=== PATIENT | male | born 1970 | race Caucasian/White ===

== ENCOUNTER 2016-11-20 14:51 | Emergency (ER) | payer MEDICAID, SELFPAY ==
--- NOTE | 2016-11-20 16:25 | RAD ---
RIGHT HAND THREE VIEWS: HISTORY: Hand pain. No history of trauma. FINDINGS: Some very mild arthritic changes of the interphalangeal joints. There are no signs of fracture or d islocation. IMPRESSION: Very mild arthritic changes of the hand. No acute bony process. POS: [facility]
--- NOTE | 2016-11-20 17:27 | ERRECORD ---
[facility] EMERGENCY RECORD HPI GENERAL (17:18 LLDO) CHIEF COMPLAINT: Patient presents for evaluation of pt was apparently here for pain relief but couldn't stay on a very busy day. Left without being seen. HISTORIAN: History provided by patient. HPI WRIST (18:34 LLDO) CHIEF COMPLAINT: Patient presents for evaluation of decreased range of motion, Patient presents for evaluation of decreased use, Patient presents for evaluation of injury, Patient presents for evaluation of pain, Patient presents for evaluation of tenderness, Patient presents for evaluation of weakness, Patient presents for evaluation of right hand and wrist dorso-medially from cutting wood yesterday. also chronic pinched nerve in back. waiting for disability. HISTORIAN: History provided by patient. MECHANISM OF INJURY: Mechanism of injury: Body motion. LOCATION: Symptoms are localized. QUALITY: Pain is dull in nature, described as aching. SEVERITY: Maximum severity of symptoms severe, Currently symptoms are moderate. ASSOCIATED WITH: No associated alcohol use, No associated clavicle pain, No associated coolness to touch, No associated distal injury, No associated distal neuro complaint, No associated elbow pain, No associated erythema, No associated fever, Associated with finger pain, Associated with hand pain, Associated with warmth. EXACERBATED BY: Patient's condition exacerbated by flexion of fingers, Patient's condition exacerbated by flexion of wrist, Patient's condition exacerbated by movement. RELIEVED BY: Patient's condition relieved by remaining still, Patient's condition relieved by rest. ROS CONSTITUTIONAL: no ros done. (17:20 LLDO) Negative constitutional review of systems. (18:37 LLDO) EYES: Negative eye review of systems, Historian denies eye pain, denies eye redness, denies eye discharge. (18:39 LLDO) ENT: Negative ears, nose, throat review of systems, Historian denies otalgia, denies rhinorrhea, denies sinus pain, denies sore throat. (18:39 LLDO) MUSCULOSKELETAL: Historian reports arthralgias, reports back pain, reports injury, reports joint stiffness, reports joint swelling. (18:37 LLDO) NEUROLOGIC: Negative neurologic review of systems, Historian denies confusion, denies focal weakness, denies mental status changes, denies sensory changes. (18:39 LLDO) ALLERGIC/IMMUNOLOGIC: Normal allergy/immunologic system review, Historian denies eczema, denies environmental allergies, denies food allergies. (18:39 LLDO) &a-1R&a+25V*p+0X*f3915C*c202B*c15G*c2P*p-0X&a-25V&a+1R Name: Kurt Davila : 1970 M46 MedRec: [id number] AcctNum: [id number] Prepared: SunNov 20, 2016 18:41 by Interface Page 1 of 4 pMD [facility] EMERGENCY RECORD PSYCHIATRIC: Negative psychiatric review of systems, Historian denies alcohol abuse, denies anxiety, denies depression, denies drug abuse, denies hallucinations. (18:39 LLDO) NOTES: Systems not reviewed; unable. (17:20 LLDO) All systems reviewed, negative except as described above. (18:37 LLDO) PAST MEDICAL HISTORY MEDICAL HISTORY: Flu vaccine up to date, Tetanus immunization up to date, Pneumococcal vaccine up to date, Notes: GERD, HEPATITIS C,. HTN,. (15:23 AWAT) MALE SURGICAL HISTORY: Patient has no surgical history. (15:23 AWAT) PSYCHIATRIC HISTORY: PSYCHO EFFECTIVE DISORDER. (15:23 AWAT) SOCIAL HISTORY: Patient denies alcohol use, Patient denies drug use, Patient currently uses tobacco, smokes cigarettes, daily, Patient has smoked for 10 years, Patient smokes 1 pack per day. (15:23 AWAT) FAMILY HISTORY: Family history is non-contributory to this case. (15:23 AWAT) NOTES: Nursing records reviewed, Agree with nursing records, Old chart reviewed, Medication list reviewed. (17:21 LLDO) Nursing records reviewed, Agree with nursing records, Medication list reviewed. (18:39 LLDO) KNOWN ALLERGIES NKDA No Known Drug Allergies (Unconfirmed) CURRENT MEDICATIONS Elavil: TABLET : Strength - 150 mg : ORAL Patient Dose: 1 tab(s) Oral once a day (at bedtime). (15:21 AWAT) CeleXA: TABLET : Strength - 10 mg : ORAL Patient Dose: 1 cap(s) Oral 2 times a day. (15:21 AWAT) Motrin: TABLET : Strength - 100 mg : ORAL Patient Dose: 1200 mg Oral As Needed.(ADVISED PT THIS IS WAAAY TOO MUCH). (15:22 AWAT) VITAL SIGNS (15:17 AWAT) VITAL SIGNS: BP: 164/95, Pulse: 88, Resp: 16, Temp: 98.0 (Oral), Pain: 9 (Constant), O2 sat: 94 on Room Air, Time: 11/20/2016 15:17. PHYSICAL EXAM CONSTITUTIONAL: no pe done. (17:20 LLDO) Vital Signs Reviewed, Patient afebrile, Pulse normal, Blood pressure normal, Respiratory rate normal, Patient appears, &a-1R&a+25V*p+0X*n3031P*c202B*c15G*c2P*p-0X&a-25V&a+1R Name: Kurt Davila : 1970 M46 MedRec: [id number] AcctNum: [id number] Prepared: SunNov 20, 2016 18:41 by Interface Page 2 of 4 pMD [facility] EMERGENCY RECORD uncomfortable, Patient appears, in mild pain distress, Patient alert and oriented to person, place and time, Nursing notes reviewed. (18:38 LLDO) HEAD: Head exam normal, Head exam included findings of head atraumatic, normocephalic. (18:39 LLDO) EYES: Eye exam normal, Eye exam included findings of eyelids normal to inspection, Pupils equally round and reactive to light, Extraocular muscles intact. (18:39 LLDO) ENT: ENT exam normal, Ear exam normal, Nose exam normal. (18:39 LLDO) NECK: Neck exam normal, Neck exam included findings of normal range of motion, Trachea midline, no meningeal signs, no tenderness. (18:39 LLDO) BACK: Back exam normal, Back exam included findings of normal inspection, range of motion normal. (18:39 LLDO) UPPER EXTREMITY: Right wrist exam included findings of, swelling, tenderness, active range of motion abnormal, passive range of motion abnormal, tendon function normal, radial pulse intact, ulnar pulse intact, capillary refill less than 2 seconds, distal motor intact, distal sensory intact, Right hand exam included findings of. (18:38 LLDO) LOWER EXTREMITY: Lower extremity exam normal, Lower extremity exam included findings of inspection normal, Range of motion normal. (18:39 LLDO) NEURO: Neuro exam normal, Neuro exam findings include patient oriented to person, place and time, Speech normal, Young coma scale 15. (18:39 LLDO) SKIN: Skin exam normal, Skin exam included findings of skin warm, dry, and normal in color, no rash. (18:39 LLDO) PSYCHIATRIC: Psychiatric exam normal, Psychiatric exam included findings of patient oriented to person place and time, Normal affect, Judgment normal. (18:39 LLDO) PROBLEM LIST No recorded problems DIAGNOSIS FINAL: PRIMARY: Low back pain. (17:22 LLDO) PRIMARY: Low back pain, ADDITIONAL: wrist strain, R. (18:30 LLDO) PRESCRIPTION (18:31 LLDO) Robaxin-750: TABLET : 750 mg : ORAL : Quantity: 1 Unit: tab(s) Route: ORAL Schedule: every 12 hours Dispense: 30 Unit: tab(s) May substitute. Refills: No Refills . NOTES: No Refills. Tylenol-Codeine #3: TABLET : 300 mg-30 mg : ORAL : Quantity: 1 Unit: tab(s) Route: ORAL Schedule: every 4 hours prn Dispense: 40 Unit: tab(s) &a-1R&a+25V*p+0X*x8310Q*c202B*c15G*c2P*p-0X&a-25V&a+1R Name: Kurt Davila : 1970 M46 MedRec: [id number] AcctNum: [id number] Prepared: SunNov 20, 2016 18:41 by Interface Page 3 of 4 pMD [facility] EMERGENCY RECORD May substitute. Refills: No Refills . NOTES: ^s=No Refills No Refills. DISPOSITION PATIENT: Disposition Type: Eloped, Disposition: Left Without Being Seen. (17:22 LLDO) Patient left the department. (17:27 MDEB) Disposition Type: , Disposition: . (17:35 AWAT) Disposition Type: Discharge, Disposition: *Discharge Home. (18:30 LLDO) Patient left the department. (18:40 MDEB) Alexandre: AWAT=BORA Damico, Terry LLDO=MD Tad, Demetrius MDEB=BORA Hager, Gillian &a-1R&a+25V*p+0X*d6740L*c202B*c15G*c2P*p-0X&a-25V&a+1R Name: GiovanniKurt : 1970 M46 MedRec: [id number] AcctNum: [id number] Prepared: [facility] Nov 20, 2016 18:41 by Interface Page 4 of 4 pMD MTDD
--- NOTE | 2016-11-20 17:31 | PICIS ---
[facility] EMERGENCY RECORD TRIAGE (15:20 AWAT) TRIAGE NOTES: RIGHT HAND PAIN X 2 DAYS(DENIES TRAUMA, BUT HAS BEEN CUTTING TREES), AND LOW BACK PAIN FROM HIS PINCHED NERVE. (15:20 AWAT) PATIENT: NAME: Kurt Davila, AGE: 46, GENDER: male, : [facility] 1970, TIME OF GREET: SunNov 20, 2016 14:52, PREFERRED LANGUAGE: Greek, ETHNICITY: Not or , ECODE BILLING MAP: [facility], SSN: [id number], Zip Code: [address], KG WEIGHT: [phone], PHONE: , , , PERSON ID: [id number], PCP: NONE. (15:20 AWAT) COMPLAINT: PINCHED NERVE IN BACK & HAND. (15:20 AWAT) ADMISSION: URGENCY: 4 Non Urgent, ADMISSION SOURCE: Home, TRANSPORT: Walk-in, BED: WAIT. (15:20 AWAT) SIRS SCORING: Heart Rate 55-109 (0), Temp range 96.8-101.1 (0), respiratory rate 12-24 (0), Mental Status altered: no (0). (15:23 AWAT) PROVIDERS: TRIAGE NURSE: Terry Damico RN. (15:20 AWAT) VITAL SIGNS: BP 164/95, Pulse 88, Resp 16, Temp 98.0, (Oral), Pain 9, (Constant), O2 Sat 94, on Room Air, Time 11/20/2016 15:17. (15:17 AWAT) PREVIOUS VISIT ALLERGIES: NKDA. (15:20 AWAT) NKDA. (15:23 AWAT) KNOWN ALLERGIES NKDA No Known Drug Allergies (Unconfirmed) CURRENT MEDICATIONS Elavil: TABLET : Strength - 150 mg : ORAL Patient Dose: 1 tab(s) Oral once a day (at bedtime). (15:21 AWAT) CeleXA: TABLET : Strength - 10 mg : ORAL Patient Dose: 1 cap(s) Oral 2 times a day. (15:21 AWAT) Motrin: TABLET : Strength - 100 mg : ORAL Patient Dose: 1200 mg Oral As Needed.(ADVISED PT THIS IS WAAAY TOO MUCH). (15:22 AWAT) VITAL SIGNS (15:17 AWAT) VITAL SIGNS: BP: 164/95, Pulse: 88, Resp: 16, Temp: 98.0 (Oral), Pain: 9 (Constant), O2 sat: 94 on Room Air, Time: 11/20/2016 15:17. NURSING ASSESSMENT: FOCUSED (15:30 AWAT) CONSTITUTIONAL: Simple assessment performed, Patient arrives ambulatory, Gait steady, History obtained from patient, Patient appears comfortable, Patient cooperative, Patient alert, Oriented to person, place and time, Skin warm, Skin dry, Skin normal in color, &a-1R&a+25V*p+0X*o3393T*c202B*c15G*c2P*p-0X&a-25V&a+1R Name: Kurt Davila : 1970 M46 MedRec: [id number] AcctNum: [id number] Prepared: SunNov 20, 2016 18:46 by Interface Page 1 of 6 pMD [facility] EMERGENCY RECORD Mucous membranes pink, Mucous membranes moist, Patient complains of RIGHT HAND PAIN & LOW BACK PAIN, THE LOW BACK PAIN IS FROM MIDLINE TO RIGHT LOW BACK MISCLE. PAIN: aching pain, BACK PAIN IS CHRONIC, HAND PAIN STARTED 2 DAYS AGO. EYES: Focused eye assessment finding include pupils equally round and reactive to light, Left pupil 4 mm in size, Right pupil 4 mm in size. NEURO: Focused neuro assessment findings include patient alert, cooperative, Speech coherent, Notes: NEURO WNL. GCS: GCS Total: 15. RESPIRATORY: Focused respiratory assessment findings include breath sounds clear, to bilateral upper lobes, to the right middle lobe, to bilateral lower lobes, Notes: RESP E/U. ABDOMEN: Focused abdominal assessment findings include abdomen soft, Notes: WNL. GENITOURINARY: Focused genitourinary assessment not applicable. 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 LACERATION: Focused laceration assessment not applicable. NOTES: Patient tolerated procedure well. SAFETY: Side rails up, Cart/Stretcher in lowest position, Call light within reach, Hospital ID band on, Physician notified of above findings. NURSING PROCEDURE: NURSE NOTES NURSES NOTES: Notes: SENT PT TO RADIOLOGY FOR XRAYS OF RIGHT HAND, THEN HE WILL GO BACK TO WAITING ROOM TO AWAIT A ROOM. (15:28 AWAT) Notes: PT TAKEN TO ROOM [address] LYNNE. (16:10 AWAT) ORDER DETAILS Order Name: Miscellaneous Nurse Order(s), Status: Done, Time: 18:34 11/20/2016, User: NINOSKA, - Ordered for: MD Mishra Lloyd, - Entered by: MD Mishra Lloyd - SunNov 20, 2016 18:33, - Quantity: 1, Order Name: Urinalysis with Microscopic, Status: Canceled, Time: 15:30 11/20/2016, User: ANGEL, - Ordered for: MD Mishra Lloyd, - Entered by: BORA Damico Adam - SunNov 20, 2016 15:29, - Quantity: 1, Order Name: XR Hand Rt 3 View STANDARD, Status: Done, Time: 16:34 11/20/2016, User: Marilia, - Ordered for: MD Mishra Lloyd, - Entered by: MD Mishra Lloyd - SunNov 20, 2016 15:30, - Quantity: 1. &a-1R&a+25V*p+0X*r8875E*c202B*c15G*c2P*p-0X&a-25V&a+1R Name: Kurt Davila : 1970 M46 MedRec: [id number] AcctNum: [id number] Prepared: SunNov 20, 2016 18:46 by Interface Page 2 of 6 pMD [facility] EMERGENCY RECORD HPI GENERAL (17:18 LLDO) CHIEF COMPLAINT: Patient presents for evaluation of pt was apparently here for pain relief but couldn't stay on a very busy day. Left without being seen. HISTORIAN: History provided by patient. HPI WRIST (18:34 LLDO) CHIEF COMPLAINT: Patient presents for evaluation of decreased range of motion, Patient presents for evaluation of decreased use, Patient presents for evaluation of injury, Patient presents for evaluation of pain, Patient presents for evaluation of tenderness, Patient presents for evaluation of weakness, Patient presents for evaluation of right hand and wrist dorso-medially from cutting wood yesterday. also chronic pinched nerve in back. waiting for disability. HISTORIAN: History provided by patient. MECHANISM OF INJURY: Mechanism of injury: Body motion. LOCATION: Symptoms are localized. QUALITY: Pain is dull in nature, described as aching. SEVERITY: Maximum severity of symptoms severe, Currently symptoms are moderate. ASSOCIATED WITH: No associated alcohol use, No associated clavicle pain, No associated coolness to touch, No associated distal injury, No associated distal neuro complaint, No associated elbow pain, No associated erythema, No associated fever, Associated with finger pain, Associated with hand pain, Associated with warmth. EXACERBATED BY: Patient's condition exacerbated by flexion of fingers, Patient's condition exacerbated by flexion of wrist, Patient's condition exacerbated by movement. RELIEVED BY: Patient's condition relieved by remaining still, Patient's condition relieved by rest. ROS CONSTITUTIONAL: no ros done. (17:20 LLDO) Negative constitutional review of systems. (18:37 LLDO) EYES: Negative eye review of systems, Historian denies eye pain, denies eye redness, denies eye discharge. (18:39 LLDO) ENT: Negative ears, nose, throat review of systems, Historian denies otalgia, denies rhinorrhea, denies sinus pain, denies sore throat. (18:39 LLDO) MUSCULOSKELETAL: Historian reports arthralgias, reports back pain, reports injury, reports joint stiffness, reports joint swelling. (18:37 LLDO) NEUROLOGIC: Negative neurologic review of systems, Historian denies confusion, denies focal weakness, denies mental status changes, denies sensory changes. (18:39 LLDO) ALLERGIC/IMMUNOLOGIC: Normal allergy/immunologic system review, Historian denies eczema, denies environmental allergies, denies food &a-1R&a+25V*p+0X*b4567N*c202B*c15G*c2P*p-0X&a-25V&a+1R Name: Kurt Davila : 1970 M46 MedRec: [id number] AcctNum: [id number] Prepared: SunNov 20, 2016 18:46 by Interface Page 3 of 6 pMD [facility] EMERGENCY RECORD allergies. (18:39 LLDO) PSYCHIATRIC: Negative psychiatric review of systems, Historian denies alcohol abuse, denies anxiety, denies depression, denies drug abuse, denies hallucinations. (18:39 LLDO) NOTES: Systems not reviewed; unable. (17:20 LLDO) All systems reviewed, negative except as described above. (18:37 LLDO) PAST MEDICAL HISTORY MEDICAL HISTORY: Flu vaccine up to date, Tetanus immunization up to date, Pneumococcal vaccine up to date, Notes: GERD, HEPATITIS C,. HTN,. (15:23 AWAT) MALE SURGICAL HISTORY: Patient has no surgical history. (15:23 AWAT) PSYCHIATRIC HISTORY: PSYCHO EFFECTIVE DISORDER. (15:23 AWAT) SOCIAL HISTORY: Patient denies alcohol use, Patient denies drug use, Patient currently uses tobacco, smokes cigarettes, daily, Patient has smoked for 10 years, Patient smokes 1 pack per day. (15:23 AWAT) FAMILY HISTORY: Family history is non-contributory to this case. (15:23 AWAT) NOTES: Nursing records reviewed, Agree with nursing records, Old chart reviewed, Medication list reviewed. (17:21 LLDO) Nursing records reviewed, Agree with nursing records, Medication list reviewed. (18:39 LLDO) PHYSICAL EXAM CONSTITUTIONAL: no pe done. (17:20 LLDO) Vital Signs Reviewed, Patient afebrile, Pulse normal, Blood pressure normal, Respiratory rate normal, Patient appears, uncomfortable, Patient appears, in mild pain distress, Patient alert and oriented to person, place and time, Nursing notes reviewed. (18:38 LLDO) HEAD: Head exam normal, Head exam included findings of head atraumatic, normocephalic. (18:39 LLDO) EYES: Eye exam normal, Eye exam included findings of eyelids normal to inspection, Pupils equally round and reactive to light, Extraocular muscles intact. (18:39 LLDO) ENT: ENT exam normal, Ear exam normal, Nose exam normal. (18:39 LLDO) NECK: Neck exam normal, Neck exam included findings of normal range of motion, Trachea midline, no meningeal signs, no tenderness. (18:39 LLDO) BACK: Back exam normal, Back exam included findings of normal inspection, range of motion normal. (18:39 LLDO) UPPER EXTREMITY: Right wrist exam included findings of, swelling, tenderness, active range of motion abnormal, passive range of motion abnormal, tendon function normal, radial pulse intact, ulnar pulse intact, capillary refill less than 2 seconds, distal motor intact, distal sensory &a-1R&a+25V*p+0X*c8203H*c202B*c15G*c2P*p-0X&a-25V&a+1R Name: Kurt Davila : 1970 M46 MedRec: [id number] AcctNum: [id number] Prepared: SunNov 20, 2016 18:46 by Interface Page 4 of 6 pMD [facility] EMERGENCY RECORD intact, Right hand exam included findings of. (18:38 LLDO) LOWER EXTREMITY: Lower extremity exam normal, Lower extremity exam included findings of inspection normal, Range of motion normal. (18:39 LLDO) NEURO: Neuro exam normal, Neuro exam findings include patient oriented to person, place and time, Speech normal, Young coma scale 15. (18:39 LLDO) SKIN: Skin exam normal, Skin exam included findings of skin warm, dry, and normal in color, no rash. (18:39 LLDO) PSYCHIATRIC: Psychiatric exam normal, Psychiatric exam included findings of patient oriented to person place and time, Normal affect, Judgment normal. (18:39 LLDO) EVENTS TRANSFER: Triage to Emergency Waiting. (SunNov 20, 2016 15:20 AWAT) Emergency Waiting to Main ED -04. (16:01 AWAT) Removed from Emergency Main ED -04. (17:27 MDEB) Readmit to Emergency Triage. (17:42 AWAT) Emergency Triage to Main ED -04. (17:44 AWAT) Removed from Emergency Main ED -04. (18:40 MDEB) PROBLEM LIST No recorded problems DIAGNOSIS FINAL: PRIMARY: Low back pain. (17:22 LLDO) PRIMARY: Low back pain, ADDITIONAL: wrist strain, R. (18:30 LLDO) DISPOSITION PATIENT: Disposition Type: Eloped, Disposition: Left Without Being Seen. (17:22 LLDO) Patient left the department. (17:27 MDEB) Disposition Type: , Disposition: . (17:35 AWAT) Disposition Type: Discharge, Disposition: *Discharge Home. (18:30 LLDO) Patient left the department. (18:40 MDEB) INSTRUCTION (18:32 LLDO) DISCHARGE: LOW BACK PAIN INJURY, WRIST SPLINT, VELCRO. FOLLOWUP: Follow up with Primary Care Physician as scheduled. SPECIAL: Follow-up with your PCP. PRESCRIPTION (18:31 LLDO) Robaxin-750: TABLET : 750 mg : ORAL : Quantity: 1 Unit: tab(s) Route: ORAL Schedule: every 12 hours Dispense: 30 Unit: tab(s) May substitute. Refills: No Refills . NOTES: No Refills. Tylenol-Codeine #3: TABLET : 300 mg-30 mg : ORAL : Quantity: &a-1R&a+25V*p+0X*u1007R*c202B*c15G*c2P*p-0X&a-25V&a+1R Name: Kurt Davila : 1970 M46 MedRec: [id number] AcctNum: [id number] Prepared: SunNov 20, 2016 18:46 by Interface Page 5 of 6 pMD [facility] EMERGENCY RECORD 1 Unit: tab(s) Route: ORAL Schedule: every 4 hours prn Dispense: 40 Unit: tab(s) May substitute. Refills: No Refills . NOTES: ^s=No Refills No Refills. ADMIN DIGITAL SIGNATURE: MD Mishra Lloyd. (17:22 LLDO) MD Mishra Lloyd. (18:40 LLDO) RESULTS (16:52 AWAT) RADIOLOGY: XR Hand Rt 3 View STANDARD Observe DT: SunNov 20, 2016 15:30, HAND3R RIGHT HAND THREE VIEWS: HISTORY: Hand pain. No history of trauma. FINDINGS: Some very mild arthritic changes of the interphalangeal joints. There are no signs of fracture or d islocation. IMPRESSION: Very mild arthritic changes of the hand. No acute bony process. POS: [facility] . Alexandre: AWAT=BORA Damico, Terry LLDO=MD Mishra Lloyd MDEB=BORA Hager Melanie &a-1R&a+25V*p+0X*c6302K*c202B*c15G*c2P*p-0X&a-25V&a+1R Name: Kurt Davila : 1970 M46 MedRec: [id number] AcctNum: [id number] Prepared: SunNov 20, 2016 18:46 by Interface Page 6 of 6 pMD [facility] MEDICATION RECONCILIATION You were seen in the Emergency Department on: SunNov 20, 2016 KNOWN ALLERGIES NKDA No Known Drug Allergies (Unconfirmed) HOME MEDICATIONS CONTINUE PRESCRIBED CeleXA : TABLET : Strength - 10 mg : ORAL Continue as prescribed Patient had been takin cap(s) Oral 2 times a day. Elavil : TABLET : Strength - 150 mg : ORAL Continue as prescribed Patient had been takin tab(s) Oral once a day (at bedtime). Motrin : TABLET : Strength - 100 mg : ORAL Continue as prescribed Patient had been takin mg Oral As Needed. Comment: (ADVISED PT THIS IS WAAAY TOO MUCH). Notes from the emergency department Reviewed with patient PRESCRIPTIONS (2) Printed (2) Robaxin-750 : TABLET : 750 mg : ORAL Quantity: 1, Unit: tab(s), Route: ORAL, Schedule: every 12 hours, Dispense: 30 Unit: tab(s) &a-1R&a+25V*p+0X*t6933P*c202B*c15G*c2P*p-0X&a-25V&a+1R Name: Kurt Davila : 1970 M46 MedRec: [id number] AcctNum: [id number] Prepared: SunNov 20, 2016 18:46 by Interface pMD GAMAL
== END 2016-11-20 18:40 | disposition home or self-care (01) ==
LOC: MADERS 14:51
DX: S66.911A Strain of unspecified muscle, fascia and tendon at wrist and hand level, right hand, initial encounter (principal); M54.5 Low back pain; I10 Essential (primary) hypertension; K21.9 Gastro-esophageal reflux disease without esophagitis; F17.210 Nicotine dependence, cigarettes, uncomplicated; Z79.899 Other long term (current) drug therapy; X58.XXXA Exposure to other specified factors, initial encounter
CPT/HCPCS: 99283

== ENCOUNTER 2016-12-26 09:18 | Emergency (ER) | payer MEDICAID, SELFPAY ==
--- NOTE | 2016-12-26 10:34 | PICIS ---
[facility] EMERGENCY RECORD TRIAGE (SunDec 26, 2016 09:32 SFRE) TRIAGE NOTES: LEFT WRIST PAIN FOR 2 DAYS. (SunDec 26, 2016 09:32 SFRE) PATIENT: NAME: Kurt Davila, AGE: 46, GENDER: male, : Anisa 1970, TIME OF GREET: SunDec 26, 2016 09:19, PREFERRED LANGUAGE: Taiwanese, ETHNICITY: Not or , ECODE BILLING MAP: [facility], SSN: [id number], Zip Code: [address], KG WEIGHT: [phone], PHONE: , , , PERSON ID: [id number], PCP: NO PCP. (SunDec 26, 2016 09:32 SFRE) COMPLAINT: LEFT WRIST PAIN. (SunDec 26, 2016 09:32 SFRE) ADMISSION: URGENCY: 5 Fast Track, ADMISSION SOURCE: Home, TRANSPORT: Walk-in, BED: TRIAGE. (SunDec 26, 2016 09:32 SFRE) ASSESSMENT: Assessment: NAD. (09:35 SFRE) PAIN: Patient complains of pain described as, aching, on a scale 0-10 patient rates pain as 9, Location LEFT WRIST, Pain is constant, No relieving factors. (09:36 SFRE) IMMUNIZATIONS: Flu vaccine not up to date. (09:36 SFRE) SIRS SCORING: Heart Rate 55-109 (0), Temp range 96.8-101.1 (0), respiratory rate 12-24 (0), Mental Status altered: no (0). (09:36 SFRE) TRIAGE SCREENING: Patient denies suicidal ideation, Patient denies presence of domestic violence. (09:36 SFRE) PROVIDERS: TRIAGE NURSE: Nia Harris RN. (SunDec 26, 2016 09:32 SFRE) VITAL SIGNS: BP 110/72, Pulse 111, Resp 18, Temp 98.1, (Tympanic), Pain 9, (Dull), O2 Sat 97, on Room Air, Time 12/26/2016 09:31. (09:31 SFRE) PREVIOUS VISIT ALLERGIES: NKDA. (Tue Dec 26, 2016 09:32 SFRE) NKDA. (09:33 SFRE) KNOWN ALLERGIES NKDA No Known Drug Allergies (Unconfirmed) CURRENT MEDICATIONS (09:33 SFRE) Elavil: TABLET : Strength - 150 mg : ORAL Patient Dose: 1 tab(s) Oral once a day (at bedtime). CeleXA: TABLET : Strength - 10 mg : ORAL Patient Dose: 1 cap(s) Oral 2 times a day. Motrin: TABLET : Strength - 100 mg : ORAL Patient Dose: 1200 mg Oral As Needed.(ADVISED PT THIS IS WAAAY TOO MUCH). Robaxin-750: TABLET : Strength - 750 mg : ORAL Patient Dose: 1 tab(s) Oral every 12 hours. &a-1R&a+25V*p+0X*[id number]*c202B*c15G*c2P*p-0X&a-25V&a+1R Name: Kurt Davila : 1970 M46 MedRec: [id number] AcctNum: [id number] Prepared: SunDec 26, 2016 11:07 by Interface Page 1 of 6 pMD [facility] EMERGENCY RECORD Tylenol-Codeine #3: TABLET : Strength - 300 mg-30 mg : ORAL Patient Dose: 1 tab(s) Oral every 4 hours prn. VITAL SIGNS (09:31 SFRE) VITAL SIGNS: BP: 110/72, Pulse: 111, Resp: 18, Temp: 98.1 (Tympanic), Pain: 9 (Dull), O2 sat: 97 on Room Air, Time: 12/26/2016 09:31. NURSING ASSESSMENT: EXTREMITY UPPER (09:37 SFRE) CONSTITUTIONAL: Patient arrives ambulatory, Gait steady, History obtained from patient, Patient appears comfortable, Patient cooperative, Patient alert, Oriented to person, place and time, Skin warm, Skin dry, Skin normal in color, Mucous membranes pink, Mucous membranes moist, Patient is well-groomed, Patient complains of LEFT WRIST PAIN. PAIN: aching pain, to the left wrist, on a scale 0-10 patient rates pain as 9, STATES HE WAS UNABLE TO FILL TRAMADOL RX BECAUSE HE DIDN'T HAVE ANY MONEY, Nothing has been tried to alleviate the pain. LEFT UPPER EXTREMITY: Left upper extremity assessment findings include capillary refill less than 2 seconds, Skin color normal to hand, Skin temperature to hand warm, Distal sensation intact, Muscle tone normal, Inspection findings include swelling, to TOP OF HAND, UNSURE IF SWELLING IS CAUSED BY INJURY OR BECAUSE HE IS WEARING AND WRIST BRACE THAT IS TO SMALL, Notes: UNABLE TO TELL ME WHAT HAPPENED. SAFETY: Side rails up, Cart/Stretcher in lowest position, Call light within reach, Hospital ID band on. NURSING PROCEDURE: DISCHARGE NOTE DISCHARGE: Patient discharged to home, ambulating without assistance, driving self, unaccompanied, Summary of Care printed/ provided, Discharge instructions given to patient, Simple or moderate discharge teaching performed, by BORA YEE, PATIENT REFUSED TO TAKE PRESCRIPTIONS. LEFT ROOM CUSSING AND HOLLERING ABOUT NOT GETTING PAIN MEDICINE. (09:59 SFRE) NOTES: Notes: PATIENT THREW DISCHARGE INSTRUCTIONS ON THE BED AND THREW THE WRIST SPLINT IN LOBBY. (10:01 SFRE) NURSING PROCEDURE: SPLINTING (09:59 SFRE) SPLINTING: Splinting indicated for pain control, Splint applied to, the left wrist, by MICHELINE, velcro wrist splint applied, Immobilized in position of comfort. SAFETY: Side rails up, Cart/Stretcher in lowest position, Call light within reach, Hospital ID band on. ORDER DETAILS Order Name: SPLINT (PRE-CHANDRAKANT), Status: Done, Time: 09:42 12/26/2016, &a-1R&a+25V*p+0X*k4229C*c202B*c15G*c2P*p-0X&a-25V&a+1R Name: Kurt Davila Christina : 1970 M46 MedRec: [id number] AcctNum: [id number] Prepared: SunDec 26, 2016 11:07 by Interface Page 2 of 6 pMD [facility] EMERGENCY RECORD User: DEION, - Ordered for: MD Rizvi Lefayne, - Entered by: MD Rizvi Lefayne - Alisha Dec 26, 2016 09:40, - Quantity: 1. MEDICATION ADMINISTRATION SUMMARY Drug Name: Keflex, Dose Ordered: 500 mg, Route: Oral, Status: Given, Time: 09:57 12/26/2016, Drug Name: Bactrim DS, Dose Ordered: 1 tab(s), Route: Oral, Status: Given, Time: 09:56 12/26/2016, Detailed record available in Medication Service section. MEDICATION SERVICE Bactrim DS: Order: Bactrim DS (sulfamethoxazole/trimethoprim) - Dose: 1 tab(s) : Oral Ordered by: Wanda Rizvi MD Entered by: Wanda Rizvi MD SunDec 26, 2016 09:41 , Acknowledged by: Nia Harris RN SunDec 26, 2016 09:42 Documented as given by: Nia Harris RN SunDec 26, 2016 09:56 Patient, Medication, Dose, Route and Time verified prior to administration. Amount given: 1 TAB, Site: Medication administered P.O., Correct patient, time, route, dose and medication confirmed prior to administration, Patient advised of actions and side-effects prior to administration, Allergies confirmed and medications reviewed prior to administration, Patient in position of comfort, Side rails up, Cart in lowest position, Family at bedside. Keflex: Order: Keflex (cephalexin monohydrate) - Dose: 500 mg : Oral Ordered by: Wanda Rizvi MD Entered by: Wanda Rizvi MD SunDec 26, 2016 09:39 , Acknowledged by: Nia Harris RN SunDec 26, 2016 09:42 Documented as given by: Nia Harris RN SunDec 26, 2016 09:57 Patient, Medication, Dose, Route and Time verified prior to administration. Amount given: 500MG, Site: Medication administered P.O., Correct patient, time, route, dose and medication confirmed prior to administration, Patient advised of actions and side-effects prior to administration, Allergies confirmed and medications reviewed prior to administration, Patient in position of comfort, Side rails up, Cart in lowest position, Family at bedside. HPI WRIST (09:42 LHOD) CHIEF COMPLAINT: Patient presents for evaluation of pain. HISTORIAN: History provided by patient. QUALITY: Pain is dull in nature, described as aching. SEVERITY: Currently symptoms are moderate, Current severity of pain rated as 9/10. TIME COURSE: 2 DAYS AGO PT REPORTS HE WAS MOVING &a-1R&a+25V*p+0X*t9597M*c202B*c15G*c2P*p-0X&a-25V&a+1R Name: Kurt Davila : 1970 M46 MedRec: [id number] AcctNum: [id number] Prepared: SunDec 26, 2016 11:07 by Interface Page 3 of 6 pMD [facility] EMERGENCY RECORD BRUSH. REPORTS SINCE THEN HIS LEFT WRIST HAS BEEN SWOLLEN AND TENDER. REPORTS HE HAS HX OF WRIST SPRAIN BEFORE AND IS USING A PRE-CHANDRAKANT SPLINT, BUT THINKS IT IS TOO SMALL. DENIES FEVER. ASSOCIATED WITH: No associated elbow pain, No associated fever, No associated open wounds, No associated shoulder pain, No associated weakness distal to injury. EXACERBATED BY: Patient's condition exacerbated by movement. RELIEVED BY: Patient's condition relieved by remaining still. ROS (09:45 LHOD) CONSTITUTIONAL: Historian denies fever. CARDIOVASCULAR: Historian denies chest pain. RESPIRATORY: Historian denies shortness of breath. GI: Historian denies abdominal pain. MUSCULOSKELETAL: Historian denies back pain, denies neck pain. LEFT WRIST TENDER / SWOLLEN OVER DORSUM. SKIN: Historian denies rash, NO OPEN WOUNDS. HEMO/LYMPHATIC: Historian denies easy bruising. NOTES: All systems reviewed, negative except as described above. PAST MEDICAL HISTORY MEDICAL HISTORY: Flu vaccine up to date, Tetanus immunization up to date, Pneumococcal vaccine up to date, Notes: GERD, HEPATITIS C,. HTN,. (09:33 SFRE) MALE SURGICAL HISTORY: Patient has no surgical history. (09:33 SFRE) PSYCHIATRIC HISTORY: PSYCHO EFFECTIVE DISORDER. (09:33 SFRE) SOCIAL HISTORY: Patient denies alcohol use, Patient denies drug use, Patient currently uses tobacco, smokes cigarettes, daily, Patient has smoked for 10 years, Patient smokes 1 pack per day. (09:33 SFRE) FAMILY HISTORY: Family history is non-contributory to this case. (09:33 SFRE) NOTES: Nursing records reviewed, PT IS RIGHT HANDED. (09:48 LHOD) PHYSICAL EXAM CONSTITUTIONAL: Vital Signs Reviewed, Patient afebrile, Pulse, tachycardic, Blood pressure normal, Patient appears, in moderate pain distress, Patient alert and oriented to person, place and time. (09:46 LHOD) UPPER EXTREMITY: LEFT WRIST WITH MODERATE DORUM EDEMA EXTENDING INTO DORSUM OF LEFT HAND. MODERATE SIZE GANGLION CYST OF DORSUM OF LEFT WRIST WITHOUT TENDERNESS OVER CYST OR JOINT. ERYTHEMA AND WARMTH OF 14 CM BY 8 CM AREA OF DORSUM OF LEFT WRIST, EXTENDING OVER DORSUM OF LEFT HAND. NO PUNCTURE WOUNDS. NORMAL ROM W/O SIGNIFICANT TENDERNESS. (09:46 LHOD) NEURO: AWAKE, ALERT. (09:51 LHOD) SKIN: ERYTHEMA AND WARMTH OF LEFT HAND DORSUM AND &a-1R&a+25V*p+0X*g1542J*c202B*c15G*c2P*p-0X&a-25V&a+1R Name: Kurt Davila : 1970 M46 MedRec: [id number] AcctNum: [id number] Prepared: SunDec 26, 2016 11:07 by Interface Page 4 of 6 pMD [facility] EMERGENCY RECORD WRIST. (09:46 LHOD) EVENTS TRANSFER: Triage to Emergency Triage. (SunDec 26, 2016 09:32 SFRE) Emergency Triage to Main ED -03. (09:34 SFRE) Removed from Emergency Main ED -03. (10:11 SFRE) DOCTOR NOTES (09:49 LHOD) TEXT: NO OBVIOUS PUNCTURE WOUNDS ALTHOUGH PT HAS TATOO ON LEFT FOREARM WHICH MIGHT MASK A PUNCTURE. HE APPEARS TO HAVE CELLULITIS OF LEFT HAND WITHOUT EVIDENCE OF ABSCESS OR SEPTIC JOINT. NO COMPARTMENT SYNDROME. PT HAS NO HX OF GOUT AND WRIST IS NOT SIGNIFICANTLY TENDER I WOULD EXPECT WITH GOUTY ARTHRITIS. NOTE--RN REPORTED PT REFUSED TO TAKE HIS ANTIBIOTIC PRESCRIPTIONS SINCE HE RECEIVED NO PAIN MEDS. HIS MED RECORD INDICATED HE HAS MOTRIN AND TYLENOL #3. PT DID NOT REQUEST ADDITIONAL WHEN I SAW HIM. PROBLEM LIST No recorded problems DIAGNOSIS (09:40 LHOD) FINAL: PRIMARY: LEFT WRIST DORSUM CELLULITIS. DISPOSITION PATIENT: Disposition Type: Discharge, Disposition: *Discharge Home, Condition: Good. (09:40 LHOD) Patient left the department. (10:11 SFRE) INSTRUCTION (09:42 LHOD) DISCHARGE: CELLULITIS. FOLLOWUP: Follow up with Primary Care Physician in 2-3 days. SPECIAL: ELEVATE HAND. Tylenol or IBUPROFEN for Pain *RETURN IF WORSE Follow-up with your PCP. PRESCRIPTION (09:41 LHOD) Bactrim DS: TABLET : 800 mg-160 mg : ORAL : Quantity: 1 Unit: tab(s) Route: ORAL Schedule: 2 times a day Dispense: 20 May substitute. Refills: No Refills . NOTES: No Refills. Keflex: CAPSULE (HARD, SOFT, ETC.) : 500 mg : ORAL : Quantity: 1 Unit: tab(s) Route: ORAL Schedule: every 8 hours Dispense: 30 May substitute. Refills: No Refills . NOTES: ^s=No Refills No Refills. &a-1R&a+25V*p+0X*r6424F*c202B*c15G*c2P*p-0X&a-25V&a+1R Name: Kurt Davila : 1970 M46 MedRec: [id number] AcctNum: [id number] Prepared: SunDec 26, 2016 11:07 by Interface Page 5 of 6 pMD [facility] EMERGENCY RECORD IMAGING (10:09 SFRE) *DISCHARGE INSTRUCTIONS RECEIPT: Image captured from scanner. *SUPPLY CHARGE SHEET: Image captured from scanner. ADMIN DIGITAL SIGNATURE: BORA Harris, Nia. (10:11 SFRE) MD Rizvi Lefayne. (11:02 OD) Alexandre: LHOD=MD Rizvi Lefayne SFRE=BORA Harris Stacey &a-1R&a+25V*p+0X*[id number]*c202B*c15G*c2P*p-0X&a-25V&a+1R Name: Kurt Davila : 1970 M46 MedRec: [id number] AcctNum: [id number] Prepared: SunDec 26, 2016 11:07 by Interface Page 6 of 6 pMD [facility]TD[facility]
== END 2016-12-26 09:59 | disposition home or self-care (01) ==
LOC: MADERS 09:18
DX: L03.114 Cellulitis of left upper limb (principal); I10 Essential (primary) hypertension; K21.9 Gastro-esophageal reflux disease without esophagitis; F17.210 Nicotine dependence, cigarettes, uncomplicated; Z79.899 Other long term (current) drug therapy
CPT/HCPCS: 99283

== ENCOUNTER 2016-12-31 16:03 | Emergency (ER) | payer OTHER, MEDICAID ==
[2016-12-31] MEDS ORDERED: Naproxen 500 MG TAB ONE (16:27)
[2016-12-31] MEDS ORDERED: HYDROcodone/Acetaminophen 10/325 mg Tablet ONE (16:27)
--- NOTE | 2016-12-31 18:02 | RAD ---
LEFT WRIST AND HAND: Comparison: None. History: Pain and swelling. FINDINGS: No acute fracture or malalignment. Mild interphalangeal joint space narrowing. Soft tissues are un remarkable. IMPRESSION: Mild osteoarthrosis. No acute abnormality. POS: [facility]
== END 2016-12-31 17:00 | disposition home or self-care (01) ==
LOC: MADERS 16:03
DX: L03.114 Cellulitis of left upper limb (principal); I10 Essential (primary) hypertension; F32.9 Major depressive disorder, single episode, unspecified; F17.210 Nicotine dependence, cigarettes, uncomplicated; Z79.899 Other long term (current) drug therapy
CPT/HCPCS: 99283

== ENCOUNTER 2017-04-07 06:57 | Emergency (ER) | payer MEDICAID ==
[2017-04-07] MEDS ORDERED: Sulfameth/Trimethoprim DS 800-160mg TAB ONE (07:41)
[2017-04-07] MEDS ORDERED: Cephalexin 500 MG CAP ONE (07:41)
== END 2017-04-07 07:42 | disposition home or self-care (01) ==
LOC: MADERS 06:57
DX: L02.411 Cutaneous abscess of right axilla (principal); I10 Essential (primary) hypertension; K21.9 Gastro-esophageal reflux disease without esophagitis; F32.9 Major depressive disorder, single episode, unspecified; F17.210 Nicotine dependence, cigarettes, uncomplicated; Z79.899 Other long term (current) drug therapy; Z86.19 Personal history of other infectious and parasitic diseases
CPT/HCPCS: 99283

== ENCOUNTER 2017-05-30 00:30 | Emergency (ER) | payer MEDICAID ==
[2017-05-30] MEDS ORDERED: Clindamycin 150 MG CAP ONE (00:57)
[2017-05-30] MEDS ORDERED: Bacitracin Zinc 1 Packet ONE (00:57)
== END 2017-05-30 01:08 | disposition home or self-care (01) ==
LOC: MADERS 00:30
DX: L03.113 Cellulitis of right upper limb (principal); N50.9 Disorder of male genital organs, unspecified; I10 Essential (primary) hypertension; F32.9 Major depressive disorder, single episode, unspecified; F17.210 Nicotine dependence, cigarettes, uncomplicated; Z79.899 Other long term (current) drug therapy
CPT/HCPCS: 99283

== ENCOUNTER 2017-08-20 23:26 | Emergency (ER) | payer OTHER ==
[2017-08-20] MEDS ORDERED: Mupirocin 2% Ointment 22 GM Tube ONE (23:53)
[2017-08-20] MEDS ORDERED: Clindamycin 150 MG CAP ONE (23:53)
== END 2017-08-21 00:02 | disposition home or self-care (01) ==
LOC: MADERS 23:26
DX: S30.860A Insect bite (nonvenomous) of lower back and pelvis, initial encounter (principal); L08.9 Local infection of the skin and subcutaneous tissue, unspecified; I10 Essential (primary) hypertension; K21.9 Gastro-esophageal reflux disease without esophagitis; F32.9 Major depressive disorder, single episode, unspecified; F25.9 Schizoaffective disorder, unspecified; F17.210 Nicotine dependence, cigarettes, uncomplicated; W57.XXXA Bitten or stung by nonvenomous insect and other nonvenomous arthropods, initial encounter
CPT/HCPCS: 99282

== ENCOUNTER 2017-09-07 12:37 | Emergency (ER) | payer MEDICAID, OTHER ==
[2017-09-07] MEDS ORDERED: traMADol HCl 50 MG TAB ONE (13:31)
[2017-09-07] MEDS ORDERED: Ketorolac Tromethamine 60 MG/2 ML VIAL ONE (13:31)
--- NOTE | 2017-09-07 14:00 | RAD ---
LEFT FOOT 3 VIEWS: Date: 09/07/17 CLINICAL HISTORY: First digit pain for 1 week, joint pain. FINDINGS: There is moderate osteoarthritis of the first MTP joint. Joint space narrowing, subchondral sclerosi s, and osteophytosis present. There is mild metatarsus prima varus and hallux valgus. No Lisfranc di slocation. Enthesophyte formation in calcaneus present. Soft tissue prominence of the distal foot is nonspecific. Correlate with physical exam. IMPRESSION: 1. Osteoarthritis preferentially involving the first ray, with mild chronic malalignment of the fir st ray. 2. No acute fracture or dislocation. POS: [facility]
[2017-09-07 14:05] LABS: Anion Gap 11 mmol/L (10-20); BUN (Urea Nitrogen) 5 mg/dL (8.9-20.6); Calc. Creatinine Clearance 0 mL/min (70-130); Carbon Dioxide 25 mmol/L (22-29); Chloride 104 mmol/L (98-107); Estimated GFR-MDRD Greater than 90; Glucose 196 mg/dL (70-105); Potassium 3.1 mmol/L (3.5-5.1); Sodium 137 mmol/L (136-145); Uric Acid 2.8 mg/dL (3.5-7.2)
[2017-09-07 14:19] LABS: Band 9 % (5-11); Eosinophils 2 % (0-10); Hemoglobin 13.5 g/dL (14.0-18.0); Lymphocytes 5 % (21-51); MDiff Complete? YES; Mean Corpuscular HGB CONC 34.3 g/dL (32.0-36.0); Mean Corpuscular Hemoglobin 32.7 pg (27.0-31.0); Mean Corpuscular Volume 95.4 fl (80.0-94.0); Monocytes 8 % (0-10); Neutrophil 76 % (42-75); PLT Morphology Comment Appears Decreased; Platelet Count 50 thou/uL (130-400); RBC Distribution Width 12.5 % (11.5-14.5); Red Blood Cell (RBC) Count 4.12 mill/uL (4.70-6.10); White Blood Cell (WBC) Count 4.9 thou/uL (4.8-10.8)
== END 2017-09-07 14:55 | disposition left against medical advice (07) ==
LOC: MADERS 12:37
DX: M25.475 Effusion, left foot (principal); R74.8 Abnormal levels of other serum enzymes; I10 Essential (primary) hypertension; K21.9 Gastro-esophageal reflux disease without esophagitis; F32.9 Major depressive disorder, single episode, unspecified; F17.210 Nicotine dependence, cigarettes, uncomplicated
CPT/HCPCS: 36415; 80048; 84550; 85025; 85379; 85652; 96372; J1885

== ENCOUNTER 2017-09-08 03:16 | Emergency (ER) | payer MEDICAID ==
[2017-09-08] MEDS ORDERED: Clindamycin/D5W 600 mg/50 ml Premix Bag ONE (03:48)
[2017-09-08] MEDS ORDERED: Morphine 10 MG/ML VIAL ONE (03:48)
[2017-09-08] MEDS ORDERED: Ondansetron HCl/PF 4 MG/2 ML Vial ONE (03:48)
[2017-09-08] MEDS ORDERED: Acetaminophen 500 MG TAB ONE (03:58)
[2017-09-08 04:36] LABS: Band 9 % (5-11); Hemoglobin 13.9 g/dL (14.0-18.0); Lymphocytes 9 % (21-51); MDiff Complete? YES; Mean Corpuscular HGB CONC 33.9 g/dL (32.0-36.0); Mean Corpuscular Hemoglobin 32.8 pg (27.0-31.0); Mean Corpuscular Volume 96.7 fl (80.0-94.0); Mean Platelet Volume 7.6 fL (7.4-10.4); Monocytes 11 % (0-10); Neutrophil 71 % (42-75); PLT Morphology Comment Appears Decreased; Platelet Count 55 thou/uL (130-400); RBC Distribution Width 12.6 % (11.5-14.5); RBC Morphology Normal; Red Blood Cell (RBC) Count 4.25 mill/uL (4.70-6.10); White Blood Cell (WBC) Count 7.8 thou/uL (4.8-10.8)
[2017-09-08] MEDS ORDERED: Sodium Chloride 0.9% 1,000 ML BAG ONE (06:34)
== END 2017-09-08 04:35 | disposition short-term general hospital (02) ==
LOC: MADERS 03:16
DX: L03.116 Cellulitis of left lower limb (principal); M00.9 Pyogenic arthritis, unspecified; R79.89 Other specified abnormal findings of blood chemistry; I10 Essential (primary) hypertension; K21.9 Gastro-esophageal reflux disease without esophagitis; F32.9 Major depressive disorder, single episode, unspecified; F17.210 Nicotine dependence, cigarettes, uncomplicated; Z79.891 Long term (current) use of opiate analgesic; Z79.899 Other long term (current) drug therapy
CPT/HCPCS: 36415; 83605; 85025; 87040; 87077; 87149; 87186; 96365; 96375; J2270; J2405; J3490; J7050

== ENCOUNTER 2018-01-04 06:15 | Emergency (ER) | payer OTHER ==
[2018-01-04] MEDS ORDERED: Acetaminophen 500 MG TAB ONE (06:58)
== END 2018-01-04 07:36 | disposition left against medical advice (07) ==
LOC: MADERS 06:15
DX: R60.0 Localized edema (principal); I10 Essential (primary) hypertension; F32.9 Major depressive disorder, single episode, unspecified; F17.210 Nicotine dependence, cigarettes, uncomplicated; W19.XXXA Unspecified fall, initial encounter
CPT/HCPCS: 99283

== ENCOUNTER 2018-08-09 12:55 | Outpatient (CLI) | payer OTHER ==
--- NOTE | 2018-08-09 14:30 | RAD ---
THREE VIEWS LEFT GREAT TOE: 08/09/18 HISTORY: Increased pain after three months. AP, lateral, and oblique views left great toe is obtained. Images demonstrate extensive erosive changes of the first distal portion of the metatarsal into the b ase of the proximal phalanx. Normal joint has been completely destroyed and there is expansion and er osive changes. This is compatible with severe great toe arthritic changes. Some osteoarthritis also s een in the interphalangeal joint of the great toe. 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 This has occurred since the previous radiograph of the left first toe dated 09/07/17. POS: [facility]
== END 2018-08-09 12:56 | disposition home or self-care (01) ==
LOC: MADRAD 12:55
PROVIDERS: ATTEND Family Medicine
DX: M79.675 Pain in left toe(s) (principal); M85.872 Other specified disorders of bone density and structure, left ankle and foot

== ENCOUNTER 2018-09-24 15:11 | Emergency (ER) | payer OTHER, SELFPAY ==
[2018-09-24] MEDS ORDERED: Acetaminophen 500 MG TAB ONE (15:18)
[2018-09-24] MEDS ORDERED: Insulin Regular 300 UNITS/3 ML VIAL ONE (15:34)
[2018-09-24 16:09] LABS: #Eosinphils 0.1 thou/uL (0.0-0.7); #Lymphocytes 2.1 thou/uL (1.20-3.40); #Monocytes 0.5 thou/uL (0.11-0.59); %Basophils 0.7 % (0.0-1.0); %Eosinophils 1.1 % (0.0-10.0); %Lymphocytes 30.9 % (21.0-51.0); %Monocytes 7.5 % (0.0-10.0); %Neutrophils 59.8 % (42.0-75.0); Hemoglobin 14.5 g/dL (14.0-18.0); Mean Corpuscular HGB CONC 35.4 g/dL (32.0-36.0); Mean Corpuscular Hemoglobin 31.8 pg (27.0-31.0); Mean Corpuscular Volume 89.9 fL (78.0-98.0); Mean Platelet Volume 7.3 fL (7.4-10.4); PLT Morphology Comment Appears Decreased; Platelet Count 87 thou/uL (130-400); RBC Distribution Width 11.6 % (11.5-14.5); Red Blood Cell (RBC) Count 4.57 mill/uL (4.70-6.10); White Blood Cell (WBC) Count 6.7 thou/uL (4.8-10.8)
[2018-09-24 16:17] LABS: ALT (SGPT) 95 U/L (8-55); AST (SGOT) 84 U/L (5-34); Albumin 3.5 g/dL (3.5-5.0); Alkaline Phosphatase 144 U/L (40-150); Anion Gap 16 mmol/L (10-20); BUN (Urea Nitrogen) 23 mg/dL (8.9-20.6); Bilirubin, Total 3.7 mg/dL (0.2-1.2); Calc. Creatinine Clearance 0 mL/min (70-130); Calcium 9.1 mg/dL (7.8-10.44); Carbon Dioxide 15 mmol/L (22-29); Chloride 103 mmol/L (98-107); Estimated GFR-MDRD 58; Glucose 287 mg/dL (70-105); Protein, Total 7.5 g/dL (6.0-8.3); Sodium 131 mmol/L (136-145)
[2018-09-24 16:19] LABS: CKMB 2.8 ng/mL (0-6.6); Troponin I Less than 0.010 ng/mL (< 0.028)
[2018-09-24 16:28] LABS: Bilirubin Negative (Negative); Blood, Urine Trace (Negative); Glucose, Urine (Dipstick) >=1000 mg/dL (Negative); Leukocyte Negative (Negative); Nitrite Negative (Negative); Protein, Urine (Dipstick) Negative (Neg-Trace); pH, Urine 5.5 (5.0-9.0)
[2018-09-24 16:29] LABS: Potassium 2.9 mmol/L (3.5-5.1)
[2018-09-24 16:40] LABS: Clarity Hazy (Clear)
[2018-09-24 16:41] LABS: Bacteria/HPF Rare-Few HPF (None Seen); Squamous Epithelial 0-3 HPF (0-3); WBC/HPF 0-3 HPF (0-3)
[2018-09-24 16:42] LABS: Crystals/HPF 1+ URIC ACID HPF (Negative); Phencyclidine (PCP) Not Detected (NotDetected); THC/Cannabinoid Screen Not Detected (NotDetected)
[2018-09-24 16:43] LABS: Amphetamine Detected (NotDetected); Barbiturates Screen Not Detected (NotDetected); Benzodiazepine Screen Not Detected (NotDetected); Cocaine Metabolite Screen Not Detected (NotDetected); Medtox Control Line Valid? VALID (VALID); Methadone Not Detected (NotDetected); Methamphetamine Detected (NotDetected); Opiate Screen Not Detected (NotDetected); Oxycodone Screen Not Detected (NotDetected); Tricyclic Screen Detected (NotDetected)
[2018-09-24] MEDS ORDERED: Potassium Chloride 20 MEQ TAB ONE ×2 (16:52→17:31)
[2018-09-24 17:22] LABS: Anion Gap 16 mmol/L (10-20); BUN (Urea Nitrogen) 22 mg/dL (8.9-20.6); Calc. Creatinine Clearance 0 mL/min (70-130); Calcium 8.8 mg/dL (7.8-10.44); Carbon Dioxide 16 mmol/L (22-29); Chloride 105 mmol/L (98-107); Estimated GFR-MDRD 68; Glucose 206 mg/dL (70-105); Sodium 134 mmol/L (136-145)
[2018-09-24 19:41] LABS: Anion Gap 15 mmol/L (10-20); BUN (Urea Nitrogen) 18 mg/dL (8.9-20.6); Calc. Creatinine Clearance 0 mL/min (70-130); Calcium 8.6 mg/dL (7.8-10.44); Carbon Dioxide 16 mmol/L (22-29); Chloride 108 mmol/L (98-107); Estimated GFR-MDRD 76; Glucose 235 mg/dL (70-105); Potassium 3.4 mmol/L (3.5-5.1); Sodium 136 mmol/L (136-145)
[2018-09-24] MEDS ORDERED: Sodium Chloride 0.9% 1,000 ML BAG ONE (23:36)
== END 2018-09-24 21:05 | disposition short-term general hospital (02) ==
LOC: MADERS 15:11
DX: E11.65 Type 2 diabetes mellitus with hyperglycemia (principal); E87.6 Hypokalemia; E87.2 Acidosis; R00.1 Bradycardia, unspecified; I10 Essential (primary) hypertension; K21.9 Gastro-esophageal reflux disease without esophagitis; F32.9 Major depressive disorder, single episode, unspecified; F17.210 Nicotine dependence, cigarettes, uncomplicated; Z79.899 Other long term (current) drug therapy
CPT/HCPCS: 36416; 80053; 80306; 81003; 81015; 82553; 84484; 85025; 93005; 94760; 96361; 96374; 99406; 36415-59; J1815; J7050

== ENCOUNTER 2018-10-07 17:45 | Emergency (ER) | payer OTHER, SELFPAY ==
[2018-10-07] MEDS ORDERED: Ibuprofen 800 MG TAB ONE (18:19)
== END 2018-10-07 18:52 | disposition home or self-care (01) ==
LOC: MADERS 17:45
DX: Z76.89 Persons encountering health services in other specified circumstances (principal); I10 Essential (primary) hypertension; K21.9 Gastro-esophageal reflux disease without esophagitis; E11.9 Type 2 diabetes mellitus without complications; F17.210 Nicotine dependence, cigarettes, uncomplicated; Z79.899 Other long term (current) drug therapy; Z79.84 Long term (current) use of oral hypoglycemic drugs
CPT/HCPCS: 99282; J1642

== ENCOUNTER 2019-01-17 15:30 | Emergency (ER) | payer SELFPAY | END 2019-01-17 16:00 | disposition home or self-care (01) | LOC: MADERS 15:30 | DX: J06.9 Acute upper respiratory infection, unspecified (principal); H69.91 Unspecified Eustachian tube disorder, right ear; Z71.6 Tobacco abuse counseling; I10 Essential (primary) hypertension; K21.9 Gastro-esophageal reflux disease without esophagitis; E11.9 Type 2 diabetes mellitus without complications; F17.210 Nicotine dependence, cigarettes, uncomplicated; Z79.899 Other long term (current) drug therapy; Z79.84 Long term (current) use of oral hypoglycemic drugs | CPT/HCPCS: 99406 ==

== ENCOUNTER 2019-03-28 12:50 | Emergency (ER) | payer OTHER, SELFPAY | END 2019-03-28 13:25 | disposition home or self-care (01) | LOC: MADERS 12:50 | DX: L03.116 Cellulitis of left lower limb (principal); I10 Essential (primary) hypertension; E11.9 Type 2 diabetes mellitus without complications; F17.210 Nicotine dependence, cigarettes, uncomplicated; F32.9 Major depressive disorder, single episode, unspecified; Z79.899 Other long term (current) drug therapy | CPT/HCPCS: 99283 ==

== ENCOUNTER 2019-04-17 08:45 | Emergency (ER) | payer SELFPAY | END 2019-04-17 09:20 | disposition home or self-care (01) | LOC: MADERS 08:45 | DX: E11.9 Type 2 diabetes mellitus without complications (principal); I10 Essential (primary) hypertension; K21.9 Gastro-esophageal reflux disease without esophagitis; F32.9 Major depressive disorder, single episode, unspecified; F17.210 Nicotine dependence, cigarettes, uncomplicated; Z79.899 Other long term (current) drug therapy | CPT/HCPCS: 36416; 99281 ==

== ENCOUNTER 2019-07-18 06:30 | Emergency (ER) | payer MEDICAID ==
[2019-07-18] MEDS ORDERED: Ketorolac Tromethamine 60 MG/2 ML VIAL ONE (07:24)
--- NOTE | 2019-07-18 07:39 | RAD ---
Portable frontal chest radiograph: 07/18/2019 COMPARISON: 12/24/2018 HISTORY: Chest pain FINDINGS: Mild pulmonary vascular congestion. Shallow inspiration limits detailed assessment of the l lukas parenchyma. No lobar consolidation or alveolar edema. Old left clavicle fracture. If symptoms persist, follow-up PA and lateral imaging of the chest with better inspiration advised. IMPRESSION: Shallow inspiration. Mild pulmonary vascular prominence.
[2019-07-18 07:58] LABS: #Basophils 0.1 thou/uL (0.0-0.2); #Eosinphils 0.1 thou/uL (0.0-0.7); #Lymphocytes 0.6 thou/uL (1.20-3.40); #Monocytes 0.3 thou/uL (0.11-0.59); %Basophils 1.8 % (0.0-1.0); %Lymphocytes 20.5 % (21.0-51.0); %Monocytes 10.4 % (0.0-10.0); %Neutrophils 64.4 % (42.0-75.0); Hemoglobin 11.6 g/dL (14.0-18.0); Mean Corpuscular HGB CONC 32.9 g/dL (32.0-36.0); Mean Corpuscular Hemoglobin 31.1 pg (27.0-31.0); Mean Corpuscular Volume 94.7 fL (78.0-98.0); Mean Platelet Volume 6.9 fL (7.4-10.4); Platelet Count 117 thou/uL (130-400); RBC Distribution Width 14.8 % (11.5-14.5); Red Blood Cell (RBC) Count 3.73 mill/uL (4.70-6.10); White Blood Cell (WBC) Count 3.1 thou/uL (4.8-10.8)
[2019-07-18 08:12] LABS: Anisocytosis SLIGHT = 6-15 cells (100X) (0-5/hpf); Eosinophils 1 % (0-10); Lymphocytes 14 % (21-51); MDiff Complete? YES; Monocytes 13 % (0-10); Neutrophil 72 % (42-75); Platelet Morphology Comment Appears Decreased
[2019-07-18 08:15] LABS: ALT (SGPT) 57 U/L (8-55); AST (SGOT) 79 U/L (5-34); Albumin 3.1 g/dL (3.5-5.0); Alkaline Phosphatase 166 U/L (40-150); Anion Gap 12 mmol/L (10-20); BUN (Urea Nitrogen) 14 mg/dL (8.4-25.7); Bilirubin, Total 1.4 mg/dL (0.2-1.2); CK (CPK) 41 U/L (30-200); Calc. Creatinine Clearance 0 mL/min (70-130); Calcium 8.5 mg/dL (7.8-10.44); Carbon Dioxide 19 mmol/L (22-29); Chloride 108 mmol/L (98-107); Estimated GFR-MDRD Greater than 90; Glucose 187 mg/dL (70-105); Potassium 4.3 mmol/L (3.5-5.1); Protein, Total 8.1 g/dL (6.0-8.3); Sodium 135 mmol/L (136-145)
== END 2019-07-18 08:41 | disposition home or self-care (01) ==
LOC: MADERS 06:30
DX: M25.512 Pain in left shoulder (principal); M54.5 Low back pain; I10 Essential (primary) hypertension; K21.9 Gastro-esophageal reflux disease without esophagitis; E11.9 Type 2 diabetes mellitus without complications; F31.9 Bipolar disorder, unspecified; F25.9 Schizoaffective disorder, unspecified; F17.210 Nicotine dependence, cigarettes, uncomplicated; Z79.899 Other long term (current) drug therapy; Z79.82 Long term (current) use of aspirin
CPT/HCPCS: 71045; 80053; 82550; 85025; 93005; 96372; J1885

== ENCOUNTER 2019-08-15 11:11 | Outpatient (CLI) | payer OTHER ==
--- NOTE | 2019-08-15 12:11 | RAD ---
Exam: 3 views lumbar spine COMPARISON: 07/07/2009 HISTORY: Low back pain FINDINGS: 5 lumbar type vertebral bodies. Straightening of normal lumbar lordosis may be due to patie nt position or muscle spasm. Current study is not tailored to assess for ligamentous injury Stable osteophyte formation. Mild loss of disc space height at L4-L5 and L5-S1. Mild hypertrophic jewel nges in the posterior elements at L4-L5 and L5. Spondylolisthesis: 1.6 mm of retrolisthesis of L3 upon L4. IMPRESSION: Degenerative changes lumbar spine as described above. Further evaluation with MRI if clin ically warranted
[2019-08-15 12:12] LABS: ALT (SGPT) 225 U/L (8-55); AST (SGOT) 223 U/L (5-34); Albumin 2.9 g/dL (3.5-5.0); Alkaline Phosphatase 202 U/L (40-110); Anion Gap 11 mmol/L (10-20); BUN (Urea Nitrogen) 11 mg/dL (8.4-25.7); Bilirubin, Total 1.5 mg/dL (0.2-1.2); Calc. Creatinine Clearance 0 mL/min (70-130); Calcium 8.3 mg/dL (7.8-10.44); Carbon Dioxide 21 mmol/L (22-29); Chloride 109 mmol/L (98-107); Estimated GFR-MDRD Greater than 90; Globulin 4.2 g/dL (2.4-3.5); Glucose 326 mg/dL (70-105); Protein, Total 7.1 g/dL (6.0-8.3); Sodium 137 mmol/L (136-145)
[2019-08-15 12:14] LABS: #Eosinphils 0.1 thou/uL (0.0-0.7); #Lymphocytes 0.5 thou/uL (1.20-3.40); #Monocytes 0.2 thou/uL (0.11-0.59); #Neutrophils 2.2 thou/uL (1.40-6.50); %Basophils 0.7 % (0.0-1.0); %Eosinophils 3.3 % (0.0-10.0); %Lymphocytes 17.2 % (21.0-51.0); %Monocytes 7.4 % (0.0-10.0); %Neutrophils 71.4 % (42.0-75.0); Hemoglobin 13.2 g/dL (14.0-18.0); Mean Corpuscular HGB CONC 33.6 g/dL (32.0-36.0); Mean Corpuscular Hemoglobin 30.8 pg (27.0-31.0); Mean Corpuscular Volume 91.5 fL (78.0-98.0); Mean Platelet Volume 6.1 fL (7.4-10.4); Platelet Count 46 thou/uL (130-400); RBC Distribution Width 14.2 % (11.5-14.5); Red Blood Cell (RBC) Count 4.14 mill/uL (4.70-6.10)
[2019-08-15 12:15] LABS: Anisocytosis SLIGHT = 6-15 cells (100X) (0-5/hpf); Platelet Morphology Comment Appears Decreased
== END 2019-08-15 11:12 | disposition home or self-care (01) ==
LOC: MADRAD 11:11
PROVIDERS: ATTEND Family Medicine
DX: M54.5 Low back pain (principal); B18.2 Chronic viral hepatitis C; M47.816 Spondylosis without myelopathy or radiculopathy, lumbar region
CPT/HCPCS: 36415; 72100; 80053; 85025